=== PATIENT | male | born 1970 | race African-American/Black ===

== ENCOUNTER 2018-03-19 12:02 | Emergency (ER) | payer MEDICAID, OTHER ==
[~2018-03-19] VITALS: Ht 177.8 cm; Wt 96.4 kg
[~2018-03-19 12:02] MED LIST: BP MEDICATION
[2018-03-19] MEDS ORDERED: KETOROLAC 60MG/2ML VIAL IM ONE ×2 (13:00→14:45)
[2018-03-19] MEDS ORDERED: TETRACAINE/BENZOCAINE/BUTAMBEN 20 GM SPRAY MM ONE (13:00)
[2018-03-19] MEDS ORDERED: DEXAMETHASONE 10 MG/ML VIAL PO ONE (13:00)
[2018-03-19] MEDS ORDERED: ONDANSETRON HCL 4MG/2ML VIAL IV ONE (13:15)
[2018-03-19] MEDS ORDERED: LIDOCAINE HCL 1%/EPI 1:200,000 30 ML VIAL MC ONE (13:15)
[2018-03-19] MEDS ORDERED: DEXAMETHASONE 10 MG/ML VIAL IV ONE (13:15)
[2018-03-19] MEDS ORDERED: MORPHINE SULFATE 4 MG/ML CPJ (NOT FOR IM USE) IV ONE (13:15)
[2018-03-19] MEDS ORDERED: CEFTRIAXONE 1 G PREMIX 50 ML IV ONE (13:15)
[2018-03-19 13:35] LABS: BASOPHILS % 0.6 % (0.0-2.0); EOSINOPHILS % 0.3 % (0.0-5.0); HEMATOCRIT. 45.5 % (42.0-52.0); HEMOGLOBIN. 15.2 g/dL (14.0-18.0); LYMPHOCYTES % 12.7 % (20.0-50.0); MEAN CORPUSCULAR HEMOGLOBIN 29.4 pg (28.0-32.0); MEAN CORPUSCULAR VOLUME 87.8 fL (80.0-94.0); MEAN PLATELET VOLUME 7.6 fl (7.4-10.4); MONOCYTES % 9.1 % (2.0-8.0); NEUTROPHILS % 77.3 % (40.0-76.0); PLATELET 312 x1000/uL (130-400); RED BLOOD CELL COUNT 5.19 mill/uL (4.7-6.1); RED CELL DISTRIBUTION WIDTH 13.3 % (11.6-14.6)
[2018-03-19 13:41] LABS: CHLORIDE 102 mEq/L (98-107)
[2018-03-19] MEDS ORDERED: AMOXICILLIN/POTASSIUM CLAVULANATE 875/125MG TAB PO ONE (14:30)
[2018-03-19] MEDS ORDERED: KETOROLAC 30MG/ML VIAL IV ONE (14:30)
[2018-03-19] MEDS ORDERED: CLONIDINE 0.2MG TABLET PO ONE (16:00)
[2018-03-19 17:01] VITALS: BP 126/81
== END 2018-03-19 17:19 | disposition home or self-care (01) ==
LOC: ER 12:02
DX: J36 Peritonsillar abscess (principal); I10 Essential (primary) hypertension; F17.200 Nicotine dependence, unspecified, uncomplicated; Z87.81 Personal history of (healed) traumatic fracture; Z98.890 Other specified postprocedural states
CPT/HCPCS: 36415; 42700; 70360; 80048; 85025; 87430; 99284; J0696; J1100; J1885; J2270; J2405; Z7610

== ENCOUNTER 2019-03-18 10:20 | Emergency (ER) | payer MEDICAID ==
[~2019-03-18] VITALS: Ht 177.8 cm; Wt 104.0 kg
[2019-03-18] MEDS ORDERED: BACITRACIN ZINC OINT UDPKT TOP ONE (11:15)
[2019-03-18] MEDS ORDERED: TETANUS, DIPHTHERIA, PERTUSSIS VAC/PF 0.5ML (>7YR OLD) IM ONE (11:15)
[2019-03-18] MEDS ORDERED: LIDOCAINE HCL/PF 1% 10 MG/ML 5ML VIAL IJ ONE (11:15)
[2019-03-18 12:39] VITALS: BP 158/64
== END 2019-03-18 12:40 | disposition home or self-care (01) ==
LOC: ER 12:34
DX: S61.412A Laceration without foreign body of left hand, initial encounter (principal); Y93.G1 Activity, food preparation and clean up; Y92.090 Kitchen in other non-institutional residence as the place of occurrence of the external cause; Z23 Encounter for immunization
CPT/HCPCS: 12001; 90471; 90715; 99283; J3490; Z7610

== ENCOUNTER 2019-03-28 05:20 | Emergency (ER) | payer MEDICAID ==
[~2019-03-28] VITALS: Ht 177.8 cm; Wt 100.0 kg
[2019-03-28] MEDS ORDERED: KETOROLAC 30MG/ML VIAL IV STA (07:26)
[2019-03-28] MEDS ORDERED: SODIUM CHLORIDE 0.9% 1,000 ML IV ONE (07:26)
[2019-03-28 07:55] LABS: BASOPHILS % 0.6 % (0.0-2.0); EOSINOPHILS % 0.1 % (0.0-5.0); HEMATOCRIT. 42.1 % (42.0-52.0); HEMOGLOBIN. 14.2 g/dL (14.0-18.0); LYMPHOCYTES % 26.4 % (20.0-50.0); MEAN CORPUSCULAR HEMOGLOBIN 29.7 pg (28.0-32.0); MEAN CORPUSCULAR VOLUME 88.1 fL (80.0-94.0); MEAN PLATELET VOLUME 7.8 fl (7.4-10.4); MONOCYTES % 9.9 % (2.0-8.0); PLATELET 309 x1000/uL (130-400); RED BLOOD CELL COUNT 4.78 mill/uL (4.7-6.1); RED CELL DISTRIBUTION WIDTH 14.1 % (11.6-14.6)
[2019-03-28 07:57] LABS: CHLORIDE 105 mEq/L (98-107)
[2019-03-28 08:03] LABS: INR 1.1; PROTHROMBIN TIME 10.9 sec (9.6-11.0)
[2019-03-28] MEDS ORDERED: MORPHINE SULFATE 4 MG/ML CPJ (NOT FOR IM USE) IV STA (09:41)
[2019-03-28] MEDS ORDERED: IOHEXOL-300 100 ML BOTTLE ONE (09:55)
[2019-03-28 10:30] LABS: CLARITY URINE CLEAR (CLEAR); COLOR URINE YELLOW (YELLOW); KETONES URINE NEGATIVE (NEGATIVE); LEUKOCYTE ESTERASE URINE NEGATIVE (NEGATIVE); NITRITE URINE NEGATIVE (NEGATIVE); OCCULT BLOOD URINE NEGATIVE (NEGATIVE); PROTEIN URINE TRACE (NEGATIVE); SPECIFIC GRAVITY URINE 1.016 (1.005-1.030); UROBILINOGEN URINE 0.2 E.U./dL (0.2-1.0)
[2019-03-28 12:27] VITALS: BP 146/99
== END 2019-03-28 12:30 | disposition home or self-care (01) ==
LOC: ER 05:20
DX: R10.11 Right upper quadrant pain (principal); I10 Essential (primary) hypertension
CPT/HCPCS: 36415; 74177; 80053; 81003; 83690; 85025; 85610; 96374; 96375; 99284; J1885; J2270; J7030; Q9967

== ENCOUNTER 2019-09-10 09:16 | Emergency (ER) | payer MEDICAID ==
[~2019-09-10] VITALS: Ht 175.3 cm; Wt 66.0 kg
[2019-09-10] MEDS ORDERED: SODIUM CHLORIDE 0.9% 1,000 ML IV ONE (09:41)
[2019-09-10] MEDS ORDERED: KETOROLAC 30MG/ML VIAL IV STA (09:41)
[2019-09-10 10:27] LABS: BASOPHILS % 0.8 % (0.0-2.0); EOSINOPHILS % 0.6 % (0.0-5.0); HEMATOCRIT. 43.6 % (42.0-52.0); HEMOGLOBIN. 14.7 g/dL (14.0-18.0); LYMPHOCYTES % 24.7 % (20.0-50.0); MEAN CORPUSCULAR HEMOGLOBIN 29.6 pg (28.0-32.0); MEAN CORPUSCULAR VOLUME 87.7 fL (80.0-94.0); MONOCYTES % 8.8 % (2.0-8.0); NEUTROPHILS % 65.1 % (40.0-76.0); PLATELET 289 x1000/uL (130-400); RED BLOOD CELL COUNT 4.97 mill/uL (4.7-6.1); RED CELL DISTRIBUTION WIDTH 13.7 % (11.6-14.6)
[2019-09-10 10:30] LABS: CHLORIDE 103 mEq/L (98-107)
[2019-09-10 10:31] LABS: *AMPHETAMINES SCREEN URINE NEGATIVE (NEGATIVE); *BARBITURATES SCREEN URINE NEGATIVE (NEGATIVE); *BENZODIAZEPINES SCREEN URINE NEGATIVE (NEGATIVE); *COCAINE SCREEN URINE PRESUMTIVE POSITIVE (NEGATIVE); METHADONE URINE SCREEN NEGATIVE (NEGATIVE); OPIATES URINE SCREEN NEGATIVE (NEGATIVE); PHENCYCLIDINE URINE SCREEN NEGATIVE (NEGATIVE)
[2019-09-10 10:32] LABS: CANNABINOID URINE SCREEN PRESUMTIVE POSITIVE (NEGATIVE)
[2019-09-10 18:04] VITALS: BP 138/88
== END 2019-09-10 18:00 | disposition home or self-care (01) ==
LOC: ER 09:27
DX: R07.9 Chest pain, unspecified (principal); T40.5X1A Poisoning by cocaine, accidental (unintentional), initial encounter; Y92.89 Other specified places as the place of occurrence of the external cause
CPT/HCPCS: 36415; 71045; 80053; 80305; 83880; 84484; 85025; 93005; 96374; 99284; J1885; J7030; Z7610

== ENCOUNTER 2019-10-11 04:11 | Emergency (ER) | payer MEDICAID ==
[~2019-10-11] VITALS: Ht 177.8 cm; Wt 100.0 kg
[2019-10-11] MEDS ORDERED: SODIUM CHLORIDE 0.9% 1,000 ML IV ONE (04:53)
[2019-10-11] MEDS ORDERED: KETOROLAC 30MG/ML VIAL IV STA (04:53)
[2019-10-11 05:18] LABS: BASOPHILS % 0.9 % (0.0-2.0); EOSINOPHILS % 0.2 % (0.0-5.0); HEMATOCRIT. 41.6 % (42.0-52.0); HEMOGLOBIN. 14.1 g/dL (14.0-18.0); LYMPHOCYTES % 27.1 % (20.0-50.0); MEAN CORPUSCULAR HEMOGLOBIN 29.9 pg (28.0-32.0); MEAN CORPUSCULAR VOLUME 88.1 fL (80.0-94.0); MEAN PLATELET VOLUME 7.9 fl (7.4-10.4); MONOCYTES % 8.5 % (2.0-8.0); NEUTROPHILS % 63.3 % (40.0-76.0); PLATELET 245 x1000/uL (130-400); RED BLOOD CELL COUNT 4.72 mill/uL (4.7-6.1); RED CELL DISTRIBUTION WIDTH 14.6 % (11.6-14.6)
[2019-10-11 05:20] LABS: PROTHROMBIN TIME 10.6 sec (9.6-11.0)
[2019-10-11 05:21] LABS: CHLORIDE 104 mEq/L (98-107)
[2019-10-11 05:27] LABS: ETHANOL BLOOD < 10 mg/dL
[2019-10-11 06:04] LABS: CLARITY URINE CLEAR (CLEAR); COLOR URINE YELLOW (YELLOW); KETONES URINE TRACE (NEGATIVE); LEUKOCYTE ESTERASE URINE NEGATIVE (NEGATIVE); NITRITE URINE NEGATIVE (NEGATIVE); OCCULT BLOOD URINE NEGATIVE (NEGATIVE); PH URINE 5.5 (4.5-8.0); PROTEIN URINE NEGATIVE (NEGATIVE); SPECIFIC GRAVITY URINE 1.008 (1.005-1.030); UROBILINOGEN URINE 0.2 E.U./dL (0.2-1.0)
[2019-10-11 06:16] VITALS: BP 145/93
== END 2019-10-11 09:08 | disposition home or self-care (01) ==
LOC: ER 04:11
DX: R10.30 Lower abdominal pain, unspecified (principal); I10 Essential (primary) hypertension
CPT/HCPCS: 36415; 74176; 80053; 80320; 81003; 83690; 85025; 85610; 96361; 96374; 99284; J1885; J7030; G0480

== ENCOUNTER 2020-05-27 05:26 | Emergency (ER) | payer SELFPAY ==
[~2020-05-27] VITALS: Ht 177.8 cm; Wt 100.0 kg
[2020-05-27 05:30] VITALS: BP 189/124
== END 2020-05-27 06:47 | disposition left against medical advice (07) ==
LOC: ER 05:26
DX: Z53.21 Procedure and treatment not carried out due to patient leaving prior to being seen by health care provider (principal)